=== PATIENT | female | born 1980 | race Caucasian/White ===

== ENCOUNTER 2017-08-14 07:25 | Emergency (ER) | payer MEDICAID ==
[2017-08-14] MEDS ORDERED: 0.9 % SODIUM CHLORIDE 1,000 ML BAG IV ONE (07:32)
[2017-08-14] MEDS ORDERED: KETOROLAC 30 MG/ML VIAL IVP ONE (07:32)
--- NOTE | 2017-08-14 07:38 | Emergency Department Record ---
History of Present Illness - General Chief Complaint: Abdominal Pain Stated Complaint: ABDOMINAL PAIN Time Seen by Provider: 08/14/17 07:32 Source: Patient, Family Mode of Arrival: Ambulatory Limitations: No limitations - History of Present Illness Initial Comments: 37 yo female presents with RLQ pain. The onset of the pain was yesterday but mild. The pain has gradually increased. She did vomit once. She has decreased appetite. No diarrhea. No dysuria. No history of abdominal surgery. The pain is worse worse with eating and moving. No vaginal bleeding or discharge. She had a temp at home of about 101. No current PCP. No current medications. PSHx tubal ligation. MD Complaint: Abdominal pain -: Days(s) (1) Location: RLQ Radiation: RLQ Migration to: RLQ Severity: Moderate Quality: Aching Consistency: Constant Improves With: Nothing Worsens With: Eating, Movement Associated Symptoms: Anorexia, Fever - Related Data Patient : No Home Medications Medication Instructions Recorded Confirmed Last Taken No Home Med [NO HOME MEDS] 08/14/17 08/14/17 Unknown Allergies Allergy/AdvReac Type Severity Reaction Status Date / Time No Known Drug Allergies Allergy Verified 08/14/17 08:03 Review of Systems Constitutional: Reports: Fever. Denies: Chills, Malaise Eyes: Denies: Eye discharge, Eye pain, Photophobia, Vision change ENT: Reports: Throat pain. Denies: Congestion, Ear pain Respiratory: Denies: Cough, Dyspnea, Hemoptysis, Stridor, Wheezes Cardiovascular: Denies: Chest pain, Palpitations, Syncope Endocrine: Denies: Fatigue Gastrointestinal: Reports: As per HPI, Abdominal pain, Nausea, Vomiting. Denies : Constipation, Diarrhea, Hematemesis, Hematochezia Genitourinary: Denies: Dysuria, Urgency Musculoskeletal: Denies: Arthralgia, Back pain, Joint swelling, Myalgia Skin: Denies: Bruising, Change in color, Rash Neurological: Denies: Headache, Numbness, Weakness Psychiatric: Denies: Anxiety Hematological/Lymphatic: Denies: Anemia, Blood Clots, Easy bleeding, Easy bruising, Swollen glands Physical Exam - General General Appearance: Alert, Oriented x3, Cooperative, No acute distress Limitations: No limitations - Head Head exam: Normal inspection - Eye Eye exam: Normal appearance, PERRL. negative: Conjunctival injection, Scleral icterus - ENT ENT exam: Normal exam, Mucous membranes moist Ear exam: Normal external inspection Nasal Exam: Normal inspection Mouth exam: Normal external inspection Teeth exam: Normal inspection Throat exam: Normal inspection. negative: Tonsillar erythema, Tonsillomegaly, Tonsillar exudate, R peritonsillar mass, L peritonsillar mass - Neck Neck exam: Normal inspection. negative: Lymphadenopathy - Respiratory Respiratory exam: Normal lung sounds bilaterally. negative: Respiratory distress - Cardiovascular Cardiovascular Exam: Regular rate, Normal rhythm, Normal heart sounds Peripheral Pulses: 2+: Radial (R), Radial (L) - GI/Abdominal GI/Abdominal exam: Soft, Tenderness (The abdomen is very soft but tender RLQ, no other tenderness on examination, ) - Rectal Rectal exam: Deferred - exam: Deferred - Extremities Extremities exam: Normal inspection, Full ROM, Normal capillary refill. negative: Tenderness - Back Back exam: Reports: Normal inspection, Full ROM. Denies: CVA tenderness (R), CVA tenderness (L), Muscle spasm, Rash noted, Tenderness - Neurological Neurological exam: Alert, Normal gait, Oriented X3 - Psychiatric Psychiatric exam: Normal affect, Normal mood - Skin Skin exam: Dry, Intact, Normal color, Warm Course - Reevaluation(s) Reevaluation #1: 08/14/17 08:07 The CBC was reported. The WBC is 20.2. 08/14/17 08:35 No acute changes on the CMP or Lipase 08/14/17 09:16 UA is negative for infection UCG is negative 08/14/17 09:29 On re-examination the patient reports her discomfort is very minimal after the Toradol. Awaiting CT scan. 08/14/17 10:[address] scan was reviewed. It is CW acute appendicitis. No FA or abscess. 08/14/17 10:39 I JAREK Najera of surgery. He requests transfer to the [facility] ED for surgery consultation and OR. The patient was informed and agrees. She was accepted by Dr Medina of the ED for transfer. Medical Decision Making - Lab Data Result diagrams: 08/14/17 07:47 08/14/17 07:47 Disposition Disposition: Discharge Clinical Impression: Appendicitis Qualifiers: Appendicitis type: acute appendicitis Acute appendicitis type: unspecified acute appendicitis type Qualified Code(s): K35.80 - Unspecified acute appendicitis Disposition: Acute Care Hospital Transfer Transfer To: [facility] Reason For Transfer: appendicitis Accepting Physician: Adam Time Discussed w/Accepting Physician: 10:42 Condition: (1) Good Forms: Patient Portal Access Time of Disposition: 10:42 Quality - Quality Measures Quality Measures: N/A - Blood Pressure Screening Does Patient Have Any of the Following: No Blood Pressure Classification: Pre-Hypertensive BP Reading Systolic Measurement: 131 Diastolic Measurement: 88 Screening for High Blood Pressure: < Pre-Hypertensive BP, F/U Documented > [ [id number]] Pre-Hypertensive Follow-up Interventions: Referral to alternative/primary care provider.
[2017-08-14 08:00] LABS: HEMATOCRIT 40.4 % (35.0-47.0); HEMOGLOBIN 13.4 gm/dl (11.6-16.0); MEAN CELL VOLUME 78.8 fl (81-97); MEAN CORPUSCULAR HEMOGLOBIN 26.1 pg (27-33); MEAN CORPUSCULAR HGB CONC 33.2 g/dl (32-36); MEAN PLATELET VOLUME 10.3 fl (7.4-10.4); PLATELET COUNT 318 K/uL (130-400); RED BLOOD COUNT 5.13 M/uL (3.80-5.40); RED CELL DISTRIBUTION WIDTH 14.7 % (11.5-14.5)
[2017-08-14 08:06] LABS: WHITE BLOOD COUNT W/O DIFF 20.2 K/uL (4.2-12.2)
[2017-08-14 08:17] LABS: PLATELET ESTIMATE NORMAL (NORMAL)
[2017-08-14 08:18] LABS: BLOOD UREA NITROGEN 11 mg/dL (6-20); CREATININE 0.7 mg/dL (0.5-0.9); EST GLOMERULAR FILTRATION RATE > 60 mL/min
[2017-08-14 08:19] LABS: TOTAL PROTEIN 8.1 g/dL (6.6-8.7)
[2017-08-14 08:21] LABS: GLUCOSE,RANDOM 136 mg/dL (74-109)
[2017-08-14 08:23] LABS: ALB/GLOB RATIO 1.4 (1.1-1.8); ALBUMIN 4.7 g/dL (4.0-5.0); ALT/SGPT 13 U/L (<33); AST/SGOT 10 U/L (10.0-35.0)
[2017-08-14 08:24] LABS: ALKALINE PHOSPHATASE 67 U/L (35-104); LIPASE 20 U/L (13-60)
[2017-08-14 08:56] LABS: URINE APPEARANCE CLEAR; URINE BILIRUBIN NEGATIVE (NEGATIVE); URINE BLOOD SMALL (NEGATIVE); URINE COLOR YELLOW; URINE GLUCOSE (UA) NEGATIVE (NEGATIVE); URINE KETONE TRACE (NEGATIVE); URINE LEUKOCYTE ESTERASE NEGATIVE (NEGATIVE); URINE NITRITE NEGATIVE (NEGATIVE); URINE PROTEIN NEGATIVE (NEGATIVE); URINE UROBILINOGEN 0.2 E.U./dL (0.20 - 1.00)
[2017-08-14 08:58] LABS: HCG,QUALITATIVE URINE NEGATIVE (NEGATIVE)
[2017-08-14 09:04] LABS: URINE BACTERIA FEW; URINE EPITHELIAL CELLS 0 - 2 (FEW); URINE RBC 0 - 2 (NONE SEEN); URINE WBC 0 - 2 (0-2/hpf)
[2017-08-14] MEDS ORDERED: ERTAPENEM SODIUM 1 G in 0.9 % SODIUM CHLORIDE 100ML 100 ML IVPB ONE (10:30)
--- NOTE | 2017-08-15 08:13 | CT SCAN REPORT ---
EXAM: EMERGENCY CT OF THE ABDOMEN AND PELVIS WITH CONTRAST HISTORY: PAIN RIGHT LOWER QUADRANT, BODY ACHES AND BACK PAIN FOR TWENTY-FOUR HOURS. TECHNIQUE: Axial CT scan of the abdomen and pelvis was performed following both oral and IV contrast administration utilizing a dose of 100 ml of Omnipaque 350 as the IV contrast. Comparison: None. FINDINGS: No calcified gallstones are seen within the gallbladder. Mild diffuse fatty infiltration of the liver with no focal hepatic mass evident. No definite splenic, adrenal, pancreatic, or renal mass identified, however, there do appear to be multiple currently nonobstructing intrarenal calculi within the left kidney. Mild diverticulosis left side of the colon, but no diverticulitis. A few diverticula in the right side of the colon as well, again with no diverticulitis evident, however, the appendix appears somewhat dilated measuring approximately 14.4 mm in diameter, with a thick wall probably demonstrating some enhancement and with hazy increased density in the adjacent periappendiceal adipose tissue along with thickening of the adjacent fascial planes all consistent with acute appendicitis. No free intraperitoneal air or free intraperitoneal fluid evident. Very small periumbilical anterior abdominal wall hernia containing adipose tissue, but no bowel. IMPRESSION: 1. FINDINGS CONSISTENT WITH ACUTE APPENDICITIS. 2. MULTIPLE NONOBSTRUCTING INTRARENAL CALCULI LEFT KIDNEY. 3. DIVERTICULOSIS IN THE COLON, BUT NO DIVERTICULITIS EVIDENT. 4. MILD DIFFUSE FATTY INFILTRATION OF THE LIVER. JOB NUMBER: [id number] [facility]
== END 2017-08-14 11:40 | disposition short-term general hospital (02) ==
LOC: ER 07:25
DX: K35.80 Unspecified acute appendicitis (principal); R50.81 Fever presenting with conditions classified elsewhere; R11.11 Vomiting without nausea
CPT/HCPCS: 99285 ×2; 96365; 96375; 96361; 83690; 80053; 81001; 81025; 85027; 74177; Q9967; J1335; J1885; J7030